=== PATIENT | female | born 1935 | race Caucasian/White ===

== ENCOUNTER → 2019-02-07 | Outpatient (CLI) | payer MEDICARE, OTHER, MEDICAID ==
[2019-02-07 11:37] LABS: BLOOD UREA NITROGEN 63 mg/dl (7-20)
[2019-02-07 11:37] LABS: CREATININE 5.81 mg/dl (0.44-1.00)
== END | disposition home or self-care (01) ==
LOC: LAB 10:47
DX: I77.89 Other specified disorders of arteries and arterioles (principal)
CPT/HCPCS: 82565; 84520

== ENCOUNTER → 2019-02-23 | Outpatient (CLI) | payer MEDICARE, OTHER ==
[2019-02-23] MEDS: SOD CHLORIDE 0.9% 100 ML (10:43)
[2019-02-23] MEDS: IOHEXOL 100 ML (10:43)
[2019-02-23] MEDS: IODIXANOL LOCM 100 ML BTL (10:44)
== END | disposition home or self-care (01) ==
LOC: C/S 09:22
DX: I77.89 Other specified disorders of arteries and arterioles (principal)
CPT/HCPCS: 70498